=== PATIENT | female | born 1965 | race Caucasian/White ===

== ENCOUNTER 2018-04-05 22:22 | Emergency (ER) | payer BC ==
[2018-04-05] MEDS ORDERED: LORazepam 2 MG/ML SDV IVPUSH ONE (22:31)
[2018-04-05] MEDS ORDERED: Ondansetron 4 MG/2 ML SDV IVPUSH ONE (22:31)
[2018-04-05] MEDS ORDERED: Sodium Chloride 0.9% 1,000 ML IV ONE (22:31)
--- NOTE | 2018-04-05 22:34 | EDM.PDOC ---
ED HPI GENERAL MEDICAL PROBLEM - General Chief Complaint: Gastrointestinal Problem Stated Complaint: VERY WEAK AND BLEEDING FROM HER BOTTOM Time Seen by Provider: 04/05/18 22:29 - History of Present Illness INITIAL COMMENTS - FREE TEXT/NARRATIVE: HISTORY AND PHYSICAL: History of present illness: Patient's 52-year-old female presents with concern of 24-48 hour history of abdominal cramping and bloody diarrhea nausea without vomiting tactile fever chills denies chest pain shortness of breath denies prior episodes denies recent travel out of country denies ill contacts. Review of systems: As per history of present illness and below otherwise all systems reviewed and negative. Past medical history: As per history of present illness and as reviewed below otherwise noncontributory. Surgical history: As per history of present illness and as reviewed below otherwise noncontributory. Social history: No reported history of drug or alcohol abuse. Family history: As per history of present illness and as reviewed below otherwise noncontributory. Physical exam: HEENT: Atraumatic, normocephalic, pupils reactive, negative for conjunctival pallor or scleral icterus, mucous membranes moist, throat clear, neck supple, nontender, trachea midline. Lungs: Clear to auscultation, breath sounds equal bilaterally, chest nontender. Heart: S1S2, regular, negative for clicks, rubs, or JVD. Abdomen: Soft, nondistended, no localized tenderness. Negative for masses or hepatosplenomegaly. Negative for costovertebral tenderness. Pelvis: Stable nontender. Genitourinary: Deferred. Rectal: Deferred. Extremities: Atraumatic, negative for cords or calf pain. Neurovascular unremarkable. Neuro: Awake, alert, oriented. Cranial nerves II through XII unremarkable. Cerebellum unremarkable. Motor and sensory unremarkable throughout. Exam nonfocal. Diagnostics: CBC CMP UA hCG stool for C&S O&P and C. difficile CT abdomen and pelvis chest x- ray Therapeutics: Saline 1 L bolus Zofran 4 mg IV Ativan 1 mg IV Impression: #1 abdominal pain #2 enteritis Definitive disposition and diagnosis as appropriate pending reevaluation and review of above. Abdomen Pain Score (Numeric/FACES): 8 - Related Data Allergies Allergy/AdvReac Type Severity Reaction Status Date / Time amoxicillin [Amoxicillin] Allergy Hives Verified 04/05/18 22:26 Dairy Products Allergy Hives Verified 04/05/18 22:26 kiwi Allergy Anaphylactic Verified 04/05/18 22:26 Shock latex Allergy Hives Verified 04/05/18 22:26 balloons Allergy Hives Uncoded 04/05/18 22:26 Home Meds: Home Meds . [No Known Home Meds] 04/05/18 [History] Past Medical History - Past Health History Medical/Surgical History: Denies Medical/Surgical History ED ROS GENERAL - Review of Systems Review Of Systems: ROS reveals no pertinent complaints other than HPI. ED EXAM, GENERAL - Physical Exam Exam: See Below (Dictation) Course - Vital Signs Last Recorded V/S: Last Vital Signs Temp 36.1 C 04/05/18 22:26 Pulse 83 04/05/18 22:26 Resp 18 04/05/18 22:26 BP Pulse Ox 98 04/05/18 22:26 - Orders/Labs/Meds Orders: Active Orders 24 hr Category Date Time Status Abdomen Pelvis wo Cont [CT] Stat Exams 04/05/18 22:30 Ordered Chest 1V Frontal [CR] Stat Exams 04/05/18 22:30 Taken CDIFF TOX A+B [OP] Stat Lab 04/05/18 22:32 Ordered CULTURE BLOOD [BC] Stat Lab 04/05/18 22:30 Received CULTURE BLOOD [BC] Stat Lab 04/05/18 22:50 Received CULTURE STOOL + CAMPY+SHIGATOX [RM] Stat Lab 04/05/18 22:32 Ordered HCG QUALITATIVE,URINE [URCHEM] Stat Lab 04/05/18 22:55 Ordered UA W/MICROSCOPIC [URIN] Stat Lab 04/05/18 22:55 Ordered Blood Culture x2 Reflex Set [OM.PC] Stat Oth 04/05/18 22:34 Ordered Labs: Laboratory Tests 04/05/18 04/05/18 04/05/18 Range/Units 22:30 22:30 22:55 WBC 9.59 (4.0-11.0) K/uL RBC 4.26 L (4.30-5.90) M/uL Hgb 14.6 (12.0-16.0) g/dL Hct 41.7 (36.0-46.0) % MCV 97.9 (80.0-98.0) fL MCH 34.3 H (27.0-32.0) pg MCHC 35.0 (31.0-37.0) g/dL RDW Std Deviation 47.9 (28.0-62.0) fl RDW Coeff of Janneth 13 (11.0-15.0) % Plt Count 234 (150-400) K/uL MPV 10.90 (7.40-12.00) fL Neut % (Auto) 48.0 (48.0-80.0) % Lymph % (Auto) 44.9 H (16.0-40.0) % [place] % (Auto) 5.8 (0.0-15.0) % Eos % (Auto) 0.9 (0.0-7.0) % Baso % (Auto) 0.4 (0.0-1.5) % Neut # (Auto) 4.6 (1.4-5.7) K/uL Lymph # (Auto) 4.3 H (0.6-2.4) K/uL [place] # (Auto) 0.6 (0.0-0.8) K/uL Eos # (Auto) 0.1 (0.0-0.7) K/uL Baso # (Auto) 0.0 (0.0-0.1) K/uL Nucleated RBC % 0.0 /100WBC Nucleated RBCs # 0 K/uL Lactate 1.3 (0.20-2.00) mmol/L Sodium (136-145) mmol/L Potassium (3.5-5.1) mmol/L Chloride (98-107) mmol/L Carbon Dioxide (21.0-32.0) mmol/L BUN (7.0-18.0) mg/dL Creatinine (0.6-1.0) mg/dL Est Cr Clr Drug Dosing mL/min Estimated GFR (MDRD) ml/min Glucose (74-106) mg/dL Calcium (8.5-10.1) mg/dL Total Bilirubin (0.2-1.0) mg/dL AST (15-37) IU/L ALT (14-63) IU/L Alkaline Phosphatase (46-116) U/L Total Protein (6.4-8.2) g/dL Albumin (3.4-5.0) g/dL Globulin (2.0-3.5) g/dL Albumin/Globulin Ratio (1.3-2.8) Urine Color YELLOW Urine Appearance CLEAR Urine pH 8.0 (5.0-8.0) Ur Specific [place] 1.010 (1.001-1.035) Urine Protein NEGATIVE (NEGATIVE) mg/dL Urine Glucose (UA) NEGATIVE (NEGATIVE) mg/dL Urine Ketones NEGATIVE (NEGATIVE) mg/dL Urine Occult Blood TRACE-INTACT (NEGATIVE) Urine Nitrite NEGATIVE (NEGATIVE) Urine Bilirubin NEGATIVE (NEGATIVE) Urine Urobilinogen 0.2 (<2.0) EU/dL Ur Leukocyte Esterase SMALL (NEGATIVE) Urine RBC 1-3 (0-2/HPF) Urine WBC 2-4 (0-5/HPF) Ur Epithelial Cells OCCASIONAL (NONE-FEW) Urine Bacteria FEW (NEGATIVE) Urine Mucus FEW (NONE-MOD) Urine HCG, Qual (NEGATIVE) 04/05/18 04/05/18 Range/Units 22:55 23:13 WBC (4.0-11.0) K/uL RBC (4.30-5.90) M/uL Hgb (12.0-16.0) g/dL Hct (36.0-46.0) % MCV (80.0-98.0) fL MCH (27.0-32.0) pg MCHC (31.0-37.0) g/dL RDW Std Deviation (28.0-62.0) fl RDW Coeff of Janneth (11.0-15.0) % Plt Count (150-400) K/uL MPV (7.40-12.00) fL Neut % (Auto) (48.0-80.0) % Lymph % (Auto) (16.0-40.0) % [place] % (Auto) (0.0-15.0) % Eos % (Auto) (0.0-7.0) % Baso % (Auto) (0.0-1.5) % Neut # (Auto) (1.4-5.7) K/uL Lymph # (Auto) (0.6-2.4) K/uL [place] # (Auto) (0.0-0.8) K/uL Eos # (Auto) (0.0-0.7) K/uL Baso # (Auto) (0.0-0.1) K/uL Nucleated RBC % /100WBC Nucleated RBCs # K/uL Lactate (0.20-2.00) mmol/L Sodium 142 (136-145) mmol/L Potassium 3.8 (3.5-5.1) mmol/L Chloride 109 H (98-107) mmol/L Carbon Dioxide 26.2 (21.0-32.0) mmol/L BUN 6 L (7.0-18.0) mg/dL Creatinine 0.7 (0.6-1.0) mg/dL Est Cr Clr Drug Dosing 89.87 mL/min Estimated GFR (MDRD) > 60.0 ml/min Glucose 87 (74-106) mg/dL Calcium 8.3 L (8.5-10.1) mg/dL Total Bilirubin 0.5 (0.2-1.0) mg/dL AST 16 (15-37) IU/L ALT 19 (14-63) IU/L Alkaline Phosphatase 53 (46-116) U/L Total Protein 6.2 L (6.4-8.2) g/dL Albumin 3.4 (3.4-5.0) g/dL Globulin 2.8 (2.0-3.5) g/dL Albumin/Globulin Ratio 1.2 L (1.3-2.8) Urine Color Urine Appearance Urine pH (5.0-8.0) Ur Specific [place] (1.001-1.035) Urine Protein (NEGATIVE) mg/dL Urine Glucose (UA) (NEGATIVE) mg/dL Urine Ketones (NEGATIVE) mg/dL Urine Occult Blood (NEGATIVE) Urine Nitrite (NEGATIVE) Urine Bilirubin (NEGATIVE) Urine Urobilinogen (<2.0) EU/dL Ur Leukocyte Esterase (NEGATIVE) Urine RBC (0-2/HPF) Urine WBC (0-5/HPF) Ur Epithelial Cells (NONE-FEW) Urine Bacteria (NEGATIVE) Urine Mucus (NONE-MOD) Urine HCG, Qual NEGATIVE (NEGATIVE) Meds: Medications Discontinued Medications Generic Name Dose Route Start Last Admin Trade Name Freq PRN Reason Stop Dose Admin Sodium Chloride 1,000 mls @ 999 mls/hr 04/05/18 22:31 04/05/18 22:40 Normal Saline IV 04/05/18 23:31 999 mls/hr .Bolus ONE Administration Lorazepam 1 mg 04/05/18 22:31 04/05/18 22:40 Ativan IVPUSH 04/05/18 22:32 1 mg ONETIME ONE Administration Ondansetron HCl 4 mg 04/05/18 22:31 04/05/18 22:41 Zofran IVPUSH 04/05/18 22:32 4 mg ONETIME ONE Administration Departure - Departure Time of Disposition: 00:05 Disposition: Home, Self-Care 01 Condition: Good Clinical Impression: Colitis - Discharge Information *PRESCRIPTION DRUG MONITORING PROGRAM REVIEWED*: Not Applicable *COPY OF PRESCRIPTION DRUG MONITORING REPORT IN PATIENT NORBERT: Not Applicable Referrals: PCP,None [Primary Care Provider] - Forms: ED Department Discharge Additional Instructions: The following information is given to patients seen in the emergency department who are being discharged to home. This information is to outline your options for follow-up care. We provide all patients seen in our emergency department with a follow-up referral. The need for follow-up, as well as the timing and circumstances, are variable depending upon the specifics of your emergency department visit. If you don't have a primary care physician on staff, we will provide you with a referral. We always advise you to contact your personal physician following an emergency department visit to inform them of the circumstance of the visit and for follow-up with them and/or the need for any referrals to a consulting specialist. The emergency department will also refer you to a specialist when appropriate. This referral assures that you have the opportunity for followup care with a specialist. All of these measure are taken in an effort to provide you with optimal care, which includes your followup. Under all circumstances we always encourage you to contact your private physician who remains a resource for coordinating your care. When calling for followup care, please make the office aware that this follow-up is from your recent emergency room visit. If for any reason you are refused follow-up, please contact the [facility] emergency department at and asked to speak to the emergency department charge nurse. [facility] [address] [place] [address], [address] [place] [address] Flagyl Cipro as prescribed push fluids clear liquids as directed follow-up primary medical doctor and/or general surgery as discussed call to schedule routine appointments return as needed as discussed - My Orders Last 24 Hours: My Active Orders 04/05/18 22:30 Abdomen Pelvis wo Cont [CT] Stat Chest 1V Frontal [CR] Stat CULTURE BLOOD [BC] Stat 04/05/18 22:32 CDIFF TOX A+B [OP] Stat CULTURE STOOL + CAMPY+SHIGATOX [RM] Stat 04/05/18 22:34 Blood Culture x2 Reflex Set [OM.PC] Stat 04/05/18 22:50 CULTURE BLOOD [BC] Stat 04/05/18 22:55 HCG QUALITATIVE,URINE [URCHEM] Stat UA W/MICROSCOPIC [URIN] Stat - Assessment/Plan Last 24 Hours: My Active Orders 04/05/18 22:30 Abdomen Pelvis wo Cont [CT] Stat Chest 1V Frontal [CR] Stat CULTURE BLOOD [BC] Stat 04/05/18 22:32 CDIFF TOX A+B [OP] Stat CULTURE STOOL + CAMPY+SHIGATOX [RM] Stat 04/05/18 22:34 Blood Culture x2 Reflex Set [OM.PC] Stat 04/05/18 22:50 CULTURE BLOOD [BC] Stat 04/05/18 22:55 HCG QUALITATIVE,URINE [URCHEM] Stat UA W/MICROSCOPIC [URIN] Stat
[2018-04-05 23:40] LABS: CHLORIDE,CL 109 mmol/L (98-107); SODIUM,NA 142 mmol/L (136-145)
--- NOTE | 2018-04-06 10:20 | CT ---
EXAM DATE: 04/05/18 PATIENT'S AGE: 52 Patient: DIPAK FONSECA Facility: [place], [place] Site . Site : 1965 Study: CT Abdomen/Pelvis w/o cont. [id number]/20/2018 11:40:23 PM Ordering Physician: Doctor Pickering Final Report: INDICATION: Nausea and diarrhea. Blood in stool TECHNIQUE: CT abdomen and pelvis without contrast. COMPARISON: None available FINDINGS: Lower chest: Unremarkable. Liver: Unremarkable. Spleen: Unremarkable. Pancreas: Unremarkable. Gallbladder and bile ducts: Cholecystectomy. Adrenal glands: Unremarkable. Kidneys: No kidney or ureteral stones and no hydronephrosis. GI tract: No mechanical bowel obstruction. A normal appendix. Mild thickening of the distal descending colon and proximal sigmoid colon wall with mild adjacent stranding, suggestive of segmental colitis. Vascular structures: Minor atherosclerotic changes. Lymph nodes: Unremarkable. Miscellaneous: No free air or significant free fluid. Pelvic Organs: A contracted bladder. No gross uterine abnormality seen. Bones: Degenerative changes at the lumbosacral junction. IMPRESSION: Findings consistent with segmental colitis involving the distal descending and proximal sigmoid colon. Recommend colonoscopic evaluation following treatment to exclude an underlying lesion. No obstructive uropathy or discrete urolithiasis. Dictated by Armani Forbes MD @ 04/05/2018 11:57:53 PM Please note that all CT scans at this facility use dose modulation, iterative reconstruction, and/or weight-based dosing when appropriate to reduce radiation dose to as low as reasonably achievable. Dictated by: Armani Forbes MD @ 04/05/2018 23:58:00 (Electronic Signature) Report Signed by Proxy. [facility] C[facility]
--- NOTE | 2018-04-06 10:21 | CR ---
EXAM DATE: 04/05/18 PATIENT'S AGE: 52 Patient: DIPAK FONSECA Facility: [place], [place] Site . Site : 1965 Study: XRay Chest [id number]/2018 11:42:46 PM Ordering Physician: Doctor Pickering Final Report: INDICATION: Dizzy, shaky. Nausea, diarrhea for 2 days. Blood in stool today. TECHNIQUE: Chest radiograph 1 view COMPARISON: None FINDINGS: Mediastinum: The mediastinum is normal in appearance. The heart silhouette is normal in size and morphology. Lung: Both lungs are unremarkable in appearance. No sign of pleural effusion seen. No pneumothorax is identified. Musculoskeletal: Unremarkable for age. IMPRESSION: 1. No acute cardiopulmonary disease is seen. Dictated by: Phillip Brantley MD @ 04/05/2018 23:50:35 (Electronic Signature) Report Signed by Proxy. KETURAH
== END 2018-04-06 00:17 | disposition home or self-care (01) ==
LOC: MW.ED 22:22
DX: K52.9 Noninfective gastroenteritis and colitis, unspecified (principal); Z88.1 Allergy status to other antibiotic agents; Z91.040 Latex allergy status; Z91.011 Allergy to milk products; Z88.8 Allergy status to other drugs, medicaments and biological substances
CPT/HCPCS: 36415; 71045; 74176; 80053; 81001; 81025; 83605; 85025; 87040; 96361; 96374; 96375; 99284; J2060; J2405; J7040

== ENCOUNTER 2019-04-24 22:44 | Observation (INO) | payer BC, OTHER ==
[2019-04-24] MEDS ORDERED: Sodium Chloride 0.9% 1,000 ML IV ONE (22:55)
--- NOTE | 2019-04-24 23:06 | EDM.PDOC ---
ED HPI GENERAL MEDICAL PROBLEM - General Chief Complaint: Gastrointestinal Problem Stated Complaint: PT SPOKE TO NURSE Time Seen by Provider: 04/24/19 23:03 - History of Present Illness INITIAL COMMENTS - FREE TEXT/NARRATIVE: HISTORY AND PHYSICAL: History of present illness: Patient is a 53-year-old white female with history of diverticulitis who presents with concern of abdominal pain and bloody diarrhea 1 day she denies fever chills nausea vomiting or other complaints with her prior episode she did not follow through on colonoscopy but states she has been well until today. Review of systems: As per history of present illness and below otherwise all systems reviewed and negative. Past medical history: As per history of present illness and as reviewed below otherwise noncontributory. Surgical history: As per history of present illness and as reviewed below otherwise noncontributory. Social history: No reported history of drug or alcohol abuse. Family history: As per history of present illness and as reviewed below otherwise noncontributory. Physical exam: HEENT: Atraumatic, normocephalic, pupils reactive, negative for conjunctival pallor or scleral icterus, mucous membranes moist, throat clear, neck supple, nontender, trachea midline. Lungs: Clear to auscultation, breath sounds equal bilaterally, chest nontender. Heart: S1S2, regular, negative for clicks, rubs, or JVD. Abdomen: Soft, nondistended, no localized tenderness. Negative for masses or hepatosplenomegaly. Negative for costovertebral tenderness. Pelvis: Stable nontender. Genitourinary: Deferred. Rectal: Deferred. Extremities: Atraumatic, negative for cords or calf pain. Neurovascular unremarkable. Neuro: Awake, alert, oriented. Cranial nerves II through XII unremarkable. Cerebellum unremarkable. Motor and sensory unremarkable throughout. Exam nonfocal. Diagnostics: CBC CMP PT/INR UA CT abdomen and pelvis stool for C&S O&P and C. difficile Therapeutics: Saline 1 L bolus Toradol 30 mg IV Impression: #1 abdominal pain #2 history diverticulitis #3 history of bloody diarrhea Definitive disposition and diagnosis as appropriate pending reevaluation and review of above. abdomen Pain Score (Numeric/FACES): 3 - Related Data Allergies Allergy/AdvReac Type Severity Reaction Status Date / Time amoxicillin [Amoxicillin] Allergy Hives Verified 04/24/19 22:57 cefaclor [From Ceclor] Allergy Hives Verified 04/24/19 22:57 cephalexin Allergy Hives Verified 04/24/19 22:57 Dairy Products Allergy Hives Verified 04/24/19 22:57 kiwi Allergy Anaphylactic Verified 04/24/19 22:57 Shock latex Allergy Hives Verified 04/24/19 22:57 Penicillins Allergy Hives Verified 04/24/19 22:57 balloons Allergy Hives Uncoded 04/24/19 22:57 Home Meds: Home Meds . [No Known Home Meds] 04/24/19 [History] Past Medical History - Past Health History Medical/Surgical History: Denies Medical/Surgical History HEENT History: Reports: None Cardiovascular History: Reports: None Respiratory History: Reports: None Gastrointestinal History: Reports: None Genitourinary History: Reports: None [employer] History: Reports: Musculoskeletal History: Reports: None Neurological History: Reports: None Psychiatric History: Reports: None Endocrine/Metabolic History: Reports: None Hematologic History: Reports: None Immunologic History: Reports: None Oncologic (Cancer) History: Reports: None Dermatologic History: Reports: None - Infectious Disease History Infectious Disease History: Reports: None - Past Surgical History Head Surgeries/Procedures: Reports: None HEENT Surgical History: Reports: None Cardiovascular Surgical History: Reports: None Respiratory Surgical History: Reports: None GI Surgical History: Reports: Cholecystectomy Female Surgical History: Reports: Section Endocrine Surgical History: Reports: None Neurological Surgical History: Reports: None Musculoskeletal Surgical History: Reports: None Oncologic Surgical History: Reports: None Dermatological Surgical History: Reports: None Social & Family History - Family History Family Medical History: Noncontributory - Tobacco Use Smoking Status *Q: Never Smoker - Caffeine Use Caffeine Use: Reports: Coffee - Recreational Drug Use Recreational Drug Use: No ED ROS GENERAL - Review of Systems Review Of Systems: ROS reveals no pertinent complaints other than HPI. ED EXAM, GENERAL - Physical Exam Exam: See Below (See dictation) Course - Vital Signs Last Recorded V/S: Last Vital Signs Temp 35.8 C 04/24/19 22:44 Pulse 66 04/25/19 00:02 Resp 16 04/25/19 00:02 BP 111/75 04/24/19 22:44 Pulse Ox 100 04/25/19 00:02 - Orders/Labs/Meds Orders: Active Orders 24 hr Category Date Time Status Peripheral IV Care [RC] . DIRECTED Care 04/24/19 22:55 Active CULTURE URINE [RM] Stat Lab 04/24/19 23:30 Received Peripheral IV Insertion Adult [OM.PC] Stat Oth 04/24/19 22:55 Ordered Labs: Laboratory Tests 04/24/19 04/24/19 04/24/19 Range/Units 23:00 23:00 23:00 WBC 6.82 (4.0-11.0) K/uL RBC 4.34 (4.30-5.90) M/uL Hgb 14.5 (12.0-16.0) g/dL Hct 42.6 (36.0-46.0) % MCV 98.2 H (80.0-98.0) fL MCH 33.4 H (27.0-32.0) pg MCHC 34.0 (31.0-37.0) g/dL RDW Std Deviation 47.9 (28.0-62.0) fl RDW Coeff of Janneth 13 (11.0-15.0) % Plt Count 183 (150-400) K/uL MPV 10.50 (7.40-12.00) fL Neut % (Auto) 54.1 (48.0-80.0) % Lymph % (Auto) 37.8 (16.0-40.0) % [place] % (Auto) 6.5 (0.0-15.0) % Eos % (Auto) 1.2 (0.0-7.0) % Baso % (Auto) 0.4 (0.0-1.5) % Neut # (Auto) 3.7 (1.4-5.7) K/uL Lymph # (Auto) 2.6 H (0.6-2.4) K/uL [place] # (Auto) 0.4 (0.0-0.8) K/uL Eos # (Auto) 0.1 (0.0-0.7) K/uL Baso # (Auto) 0.0 (0.0-0.1) K/uL Nucleated RBC % 0.0 /100WBC Nucleated RBCs # 0 K/uL INR 1.08 Sodium 144 (136-145) mmol/L Potassium 3.5 (3.5-5.1) mmol/L Chloride 105 (98-107) mmol/L Carbon Dioxide 26.9 (21.0-32.0) mmol/L BUN 7 (7.0-18.0) mg/dL Creatinine 0.7 (0.6-1.0) mg/dL Est Cr Clr Drug Dosing 92.02 mL/min Estimated GFR (MDRD) > 60.0 ml/min Glucose 105 (74-106) mg/dL Calcium 9.2 (8.5-10.1) mg/dL Urine Color Urine Appearance Urine pH (5.0-8.0) Ur Specific [place] (1.001-1.035) Urine Protein (NEGATIVE) mg/dL Urine Glucose (UA) (NEGATIVE) mg/dL Urine Ketones (NEGATIVE) mg/dL Urine Occult Blood (NEGATIVE) Urine Nitrite (NEGATIVE) Urine Bilirubin (NEGATIVE) Urine Urobilinogen (<2.0) EU/dL Ur Leukocyte Esterase (NEGATIVE) Urine RBC (0-2/HPF) Urine WBC (0-5/HPF) Ur Epithelial Cells (NONE-FEW) Urine Bacteria (NEGATIVE) 04/24/19 Range/Units 23:30 WBC (4.0-11.0) K/uL RBC (4.30-5.90) M/uL Hgb (12.0-16.0) g/dL Hct (36.0-46.0) % MCV (80.0-98.0) fL MCH (27.0-32.0) pg MCHC (31.0-37.0) g/dL RDW Std Deviation (28.0-62.0) fl RDW Coeff of Janneth (11.0-15.0) % Plt Count (150-400) K/uL MPV (7.40-12.00) fL Neut % (Auto) (48.0-80.0) % Lymph % (Auto) (16.0-40.0) % [place] % (Auto) (0.0-15.0) % Eos % (Auto) (0.0-7.0) % Baso % (Auto) (0.0-1.5) % Neut # (Auto) (1.4-5.7) K/uL Lymph # (Auto) (0.6-2.4) K/uL [place] # (Auto) (0.0-0.8) K/uL Eos # (Auto) (0.0-0.7) K/uL Baso # (Auto) (0.0-0.1) K/uL Nucleated RBC % /100WBC Nucleated RBCs # K/uL INR Sodium (136-145) mmol/L Potassium (3.5-5.1) mmol/L Chloride (98-107) mmol/L Carbon Dioxide (21.0-32.0) mmol/L BUN (7.0-18.0) mg/dL Creatinine (0.6-1.0) mg/dL Est Cr Clr Drug Dosing mL/min Estimated GFR (MDRD) ml/min Glucose (74-106) mg/dL Calcium (8.5-10.1) mg/dL Urine Color YELLOW Urine Appearance SLT CLOUDY Urine pH 6.5 (5.0-8.0) Ur Specific [place] <= 1.005 (1.001-1.035) Urine Protein NEGATIVE (NEGATIVE) mg/dL Urine Glucose (UA) NEGATIVE (NEGATIVE) mg/dL Urine Ketones NEGATIVE (NEGATIVE) mg/dL Urine Occult Blood MODERATE H (NEGATIVE) Urine Nitrite NEGATIVE (NEGATIVE) Urine Bilirubin NEGATIVE (NEGATIVE) Urine Urobilinogen 0.2 (<2.0) EU/dL Ur Leukocyte Esterase LARGE H (NEGATIVE) Urine RBC 0-2 (0-2/HPF) Urine WBC 15-20 (0-5/HPF) Ur Epithelial Cells MODERATE (NONE-FEW) Urine Bacteria FEW (NEGATIVE) Meds: Medications Discontinued Medications Generic Name Dose Route Start Last Admin Trade Name Freq PRN Reason Stop Dose Admin Sodium Chloride 1,000 mls @ 999 mls/hr 04/24/19 22:55 04/24/19 23:03 Normal Saline IV 04/24/19 23:55 999 mls/hr .Bolus ONE Administration Departure - Departure Time of Disposition: 00:36 Disposition: Refer to Observation Condition: Good Clinical Impression: Colitis - Discharge Information Referrals: PCP,None [Primary Care Provider] - Forms: ED Department Discharge - My Orders Last 24 Hours: My Active Orders 04/24/19 22:55 Peripheral IV Care [RC] . DIRECTED Peripheral IV Insertion Adult [OM.PC] Stat 04/24/19 23:30 CULTURE URINE [RM] Stat - Assessment/Plan Last 24 Hours: My Active Orders 04/24/19 22:55 Peripheral IV Care [RC] . DIRECTED Peripheral IV Insertion Adult [OM.PC] Stat 04/24/19 23:30 CULTURE URINE [RM] Stat
[2019-04-24 23:26] LABS: BLOOD UREA NITROGEN,BUN 7 mg/dL (7.0-18.0); CARBON DIOXIDE,CO2 26.9 mmol/L (21.0-32.0); CHLORIDE,CL 105 mmol/L (98-107); GLUCOSE RANDOM 105 mg/dL (74-106); POTASSIUM,K 3.5 mmol/L (3.5-5.1); SODIUM,NA 144 mmol/L (136-145)
--- NOTE | 2019-04-25 00:13 | CT ---
INDICATION: Bloody stools TECHNIQUE: CT abdomen and pelvis without contrast. COMPARISON: Abdomen and pelvis CT 04/05/2018 FINDINGS: Lower chest: Unremarkable. Liver: Normal in size and attenuation. No masses. Gallbladder and bile ducts: Status post cholecystectomy. Pancreas: Unremarkable. No mass or inflammation. Spleen: Normal in size. No masses. Adrenal glands: Normal in size. No nodules. Kidneys: Normal in size. No masses, stones, or hydronephrosis. GI tract: The stomach is unremarkable. There are no dilated loops of large or small intestine fruit evaluation of the bowel is somewhat limited due to the absence of intravenous and oral contrast although there is some colonic wall thickening of the descending colon with trace adjacent inflammation (201, 65). Vasculature: Unremarkable. Pelvis: Unremarkable. No pelvic masses. Bones: Mild degenerative disc disease L5-S1. IMPRESSION: 1. No evidence of nephrolithiasis or hydronephrosis. 2. Mild wall thickening and slight fat stranding surrounding the descending colon consistent with a long segment colitis. Differential diagnosis includes infectious colitis, inflammatory bowel disease and ischemic colitis. Please note that all CT scans at this facility use dose modulation, iterative reconstruction, and/or weight-based dosing when appropriate to reduce radiation dose to as low as reasonably achievable. Dictated by Cuong Yang MD @ Apr 24 2019 11:55PM Signed by Dr. Cuong Yang @ Apr 25 2019 12:10AM
[2019-04-25] MEDS ORDERED: metroNIDAZOLE/Normal Saline 500 MG in Premix Bag 1 BAG IV ONE (00:36)
[2019-04-25] MEDS ORDERED: Ciprofloxacin in D5W 400 MG in Premix Bag 1 BAG IV SCH ×4 (00:45→14:00)
[2019-04-25] MEDS ORDERED: Acetaminophen 325 MG Tab PO PRN (02:21)
[2019-04-25] MEDS ORDERED: oxyCODONE 5 MG Tab PO PRN (02:22)
[2019-04-25] MEDS ORDERED: Sodium Chloride 0.9% 1,000 ML IV SCH (02:30)
[2019-04-25 06:48] LABS: BLOOD UREA NITROGEN,BUN 4 mg/dL (7.0-18.0); CARBON DIOXIDE,CO2 25.2 mmol/L (21.0-32.0); CHLORIDE,CL 110 mmol/L (98-107); GLUCOSE RANDOM 104 mg/dL (74-106); POTASSIUM,K 3.5 mmol/L (3.5-5.1); SODIUM,NA 146 mmol/L (136-145)
--- NOTE | 2019-04-25 07:31 | PCM.HP.2 ---
<Leti Neri - Last Filed: 04/25/19 15:47> H&P History of Present Illness - General Date of Service: 04/25/19 Admit Problem/Dx: Admission Diagnosis/Problem Admission Diagnosis/Problem Colitis - History of Present Illness Initial Comments - Free Text/Narative: The patient is a 53-year-old female who presented to the ER last night with lower abdominal pain and bloody diarrhea 1 day. She reports she's had a history of diverticulitis within the last year and this feels the same. Reports she was supposed to follow-up with Gen. surgery for colonoscopy, but she did not. She denies any fever, chills, chest pain, shortness of breath, nausea, or vomiting. Her lower abdominal pain is more left-sided and crampy. She also noticed increased urinary frequency but no burning with urination. She reports she is otherwise healthy and does not take any medications. In the ER, lab work did not show a white count or anemia. A BMP showed no significant abnormalities. A UA did show signs of infection. A CT of the abdomen and pelvis showed mild wall thickening and slight stranding of the descending colon. Patient was started on Cipro, Flagyl and IV fluids. PCP- Aguilar abdomen Pain Score (Numeric/FACES): 4 - Related Data Allergies/Adverse Reactions: Allergies Allergy/AdvReac Type Severity Reaction Status Date / Time amoxicillin [Amoxicillin] Allergy Hives Verified 04/25/19 01:20 cefaclor [From Ceclor] Allergy Hives Verified 04/25/19 01:20 cephalexin Allergy Hives Verified 04/25/19 01:20 kiwi Allergy Anaphylactic Verified 04/25/19 01:20 Shock latex Allergy Hives Verified 04/25/19 01:20 Penicillins Allergy Hives Verified 04/25/19 01:20 balloons Allergy Hives Uncoded 04/24/19 22:57 Home Medications: Home Meds Ciprofloxacin HCl [Cipro] 500 mg PO BID 13 Days #26 tablet 04/25/19 [Rx] metroNIDAZOLE [Flagyl] 500 mg PO Q8H 13 Days #39 tab 04/25/19 [Rx] Past Medical History - Past Health History Medical/Surgical History: Denies Medical/Surgical History HEENT History: Reports: None Cardiovascular History: Reports: None Respiratory History: Reports: None Gastrointestinal History: Reports: None Genitourinary History: Reports: None [employer] History: Reports: Musculoskeletal History: Reports: None Neurological History: Reports: None Psychiatric History: Reports: None Endocrine/Metabolic History: Reports: None Hematologic History: Reports: None Immunologic History: Reports: None Oncologic (Cancer) History: Reports: None Dermatologic History: Reports: None - Infectious Disease History Infectious Disease History: Reports: None - Past Surgical History Head Surgeries/Procedures: Reports: None HEENT Surgical History: Reports: None Cardiovascular Surgical History: Reports: None Respiratory Surgical History: Reports: None GI Surgical History: Reports: Cholecystectomy Female Surgical History: Reports: Section Endocrine Surgical History: Reports: None Neurological Surgical History: Reports: None Musculoskeletal Surgical History: Reports: None Oncologic Surgical History: Reports: None Dermatological Surgical History: Reports: None Social & Family History - Family History Family Medical History: Noncontributory - Tobacco Use Smoking Status *Q: Never Smoker - Caffeine Use Caffeine Use: Reports: Coffee - Recreational Drug Use Recreational Drug Use: No H&P Review of Systems - Review of Systems: Review Of Systems: See Below General: Reports: No Symptoms HEENT: Reports: No Symptoms Pulmonary: Reports: No Symptoms Cardiovascular: Reports: No Symptoms Gastrointestinal: Reports: Abdominal Pain, Bloody Stool, Diarrhea. Denies: Constipation, Nausea, Vomiting Genitourinary: Reports: Frequency. Denies: Dysuria, Burning, Pain, Urgency Musculoskeletal: Reports: No Symptoms Skin: Reports: No Symptoms Psychiatric: Reports: No Symptoms Neurological: Reports: No Symptoms Hematologic/Lymphatic: Reports: No Symptoms Immunologic: Reports: No Symptoms Exam - Exam Exam: See Below - Vital Signs Vital Signs: Last Vital Signs Temp 97.4 F 04/25/19 04:43 Pulse 67 04/25/19 04:43 Resp 16 04/25/19 04:43 BP 117/63 04/25/19 04:43 Pulse Ox 98 04/25/19 04:43 Weight: 61.689 kg - Exam General: Alert, Oriented, Cooperative HEENT: Conjunctiva Clear, EOMI, Mucosa Moist & [place], Posterior Pharynx Clear, Pupils Equal, Pupils Reactive Neck: Supple, Trachea Midline Lungs: Clear to Auscultation, Normal Respiratory Effort Cardiovascular: Regular Rate, Regular Rhythm GI/Abdominal Exam: Normal Bowel Sounds, Soft, Tender (LLQ). No: Guarding, Rigid , Rebound Extremities: No Pedal Edema Skin: Warm, Dry, Intact Neuro Extensive - Mental Status: Alert, Oriented x3 Psychiatric: Alert, Normal Affect, Normal Mood - Patient Data Lab Results Last 24 hrs: Laboratory Results - last 24 hr 04/24/19 04/24/19 04/24/19 Range/Units 23:00 23:00 23:00 WBC 6.82 (4.0-11.0) K/uL RBC 4.34 (4.30-5.90) M/uL Hgb 14.5 (12.0-16.0) g/dL Hct 42.6 (36.0-46.0) % MCV 98.2 H (80.0-98.0) fL MCH 33.4 H (27.0-32.0) pg MCHC 34.0 (31.0-37.0) g/dL RDW Std Deviation 47.9 (28.0-62.0) fl RDW Coeff of Janneth 13 (11.0-15.0) % Plt Count 183 (150-400) K/uL MPV 10.50 (7.40-12.00) fL Neut % (Auto) 54.1 (48.0-80.0) % Lymph % (Auto) 37.8 (16.0-40.0) % [place] % (Auto) 6.5 (0.0-15.0) % Eos % (Auto) 1.2 (0.0-7.0) % Baso % (Auto) 0.4 (0.0-1.5) % Neut # (Auto) 3.7 (1.4-5.7) K/uL Lymph # (Auto) 2.6 H (0.6-2.4) K/uL [place] # (Auto) 0.4 (0.0-0.8) K/uL Eos # (Auto) 0.1 (0.0-0.7) K/uL Baso # (Auto) 0.0 (0.0-0.1) K/uL Nucleated RBC % 0.0 /100WBC Nucleated RBCs # 0 K/uL INR 1.08 Sodium 144 (136-145) mmol/L Potassium 3.5 (3.5-5.1) mmol/L Chloride 105 (98-107) mmol/L Carbon Dioxide 26.9 (21.0-32.0) mmol/L BUN 7 (7.0-18.0) mg/dL Creatinine 0.7 (0.6-1.0) mg/dL Est Cr Clr Drug Dosing 92.02 mL/min Estimated GFR (MDRD) > 60.0 ml/min Glucose 105 (74-106) mg/dL Calcium 9.2 (8.5-10.1) mg/dL Total Bilirubin (0.2-1.0) mg/dL AST (15-37) IU/L ALT (14-63) IU/L Alkaline Phosphatase (46-116) U/L Total Protein (6.4-8.2) g/dL Albumin (3.4-5.0) g/dL Globulin (2.6-4.0) g/dL Albumin/Globulin Ratio (0.9-1.6) Urine Color Urine Appearance Urine pH (5.0-8.0) Ur Specific [place] (1.001-1.035) Urine Protein (NEGATIVE) mg/dL Urine Glucose (UA) (NEGATIVE) mg/dL Urine Ketones (NEGATIVE) mg/dL Urine Occult Blood (NEGATIVE) Urine Nitrite (NEGATIVE) Urine Bilirubin (NEGATIVE) Urine Urobilinogen (<2.0) EU/dL Ur Leukocyte Esterase (NEGATIVE) Urine RBC (0-2/HPF) Urine WBC (0-5/HPF) Ur Epithelial Cells (NONE-FEW) Urine Bacteria (NEGATIVE) 04/24/19 04/25/19 04/25/19 Range/Units 23:30 06:00 06:00 WBC 4.10 (4.0-11.0) K/uL RBC 3.82 L (4.30-5.90) M/uL Hgb 12.5 (12.0-16.0) g/dL Hct 37.4 (36.0-46.0) % MCV 97.9 (80.0-98.0) fL MCH 32.7 H (27.0-32.0) pg MCHC 33.4 (31.0-37.0) g/dL RDW Std Deviation 47.0 (28.0-62.0) fl RDW Coeff of Janneth 13 (11.0-15.0) % Plt Count 145 L (150-400) K/uL MPV 10.20 (7.40-12.00) fL Neut % (Auto) 56.5 (48.0-80.0) % Lymph % (Auto) 34.4 (16.0-40.0) % [place] % (Auto) 7.1 (0.0-15.0) % Eos % (Auto) 1.5 (0.0-7.0) % Baso % (Auto) 0.5 (0.0-1.5) % Neut # (Auto) 2.3 (1.4-5.7) K/uL Lymph # (Auto) 1.4 (0.6-2.4) K/uL [place] # (Auto) 0.3 (0.0-0.8) K/uL Eos # (Auto) 0.1 (0.0-0.7) K/uL Baso # (Auto) 0.0 (0.0-0.1) K/uL Nucleated RBC % 0.0 /100WBC Nucleated RBCs # 0 K/uL INR Sodium 146 H (136-145) mmol/L Potassium 3.5 (3.5-5.1) mmol/L Chloride 110 H (98-107) mmol/L Carbon Dioxide 25.2 (21.0-32.0) mmol/L BUN 4 L (7.0-18.0) mg/dL Creatinine 0.6 (0.6-1.0) mg/dL Est Cr Clr Drug Dosing 106.81 mL/min Estimated GFR (MDRD) > 60.0 ml/min Glucose 104 (74-106) mg/dL Calcium 8.2 L (8.5-10.1) mg/dL Total Bilirubin 0.8 (0.2-1.0) mg/dL AST 15 (15-37) IU/L ALT 18 (14-63) IU/L Alkaline Phosphatase 53 (46-116) U/L Total Protein 5.6 L (6.4-8.2) g/dL Albumin 3.0 L (3.4-5.0) g/dL Globulin 2.6 (2.6-4.0) g/dL Albumin/Globulin Ratio 1.2 (0.9-1.6) Urine Color YELLOW Urine Appearance SLT CLOUDY Urine pH 6.5 (5.0-8.0) Ur Specific [place] <= 1.005 (1.001-1.035) Urine Protein NEGATIVE (NEGATIVE) mg/dL Urine Glucose (UA) NEGATIVE (NEGATIVE) mg/dL Urine Ketones NEGATIVE (NEGATIVE) mg/dL Urine Occult Blood MODERATE H (NEGATIVE) Urine Nitrite NEGATIVE (NEGATIVE) Urine Bilirubin NEGATIVE (NEGATIVE) Urine Urobilinogen 0.2 (<2.0) EU/dL Ur Leukocyte Esterase LARGE H (NEGATIVE) Urine RBC 0-2 (0-2/HPF) Urine WBC 15-20 (0-5/HPF) Ur Epithelial Cells MODERATE (NONE-FEW) Urine Bacteria FEW (NEGATIVE) Result Diagrams: 04/25/19 06:00 04/25/19 06:00 - Problem List (1) UTI (urinary tract infection) SNOMED Code(s): 26413739 ICD Code: N39.0 - URINARY TRACT INFECTION, SITE NOT SPECIFIED Status: Acute Current Visit: Yes (2) Colitis SNOMED Code(s): 88157129 ICD Code: K52.9 - NONINFECTIVE GASTROENTERITIS AND COLITIS, UNSPECIFIED Status: Acute Current Visit: Yes Problem List Initiated/Reviewed/Updated: Yes Orders Last 24hrs: Active Orders 24 hr Category Date Time Status Patient Status [ADT] Stat ADT 04/25/19 00:38 Active Peripheral IV Care [RC] . DIRECTED Care 04/24/19 22:55 Active Clear Liquid Diet [DIET] Diet 04/25/19 Breakfast Active CDIFF TOX A+B [OP] Routine Lab 04/25/19 02:25 Ordered CULTURE STOOL + CAMPY+SHIGATOX [RM] Routine Lab 04/25/19 02:25 Ordered CULTURE URINE [RM] Stat Lab 04/24/19 23:30 Received Acetaminophen [Tylenol] Med 04/25/19 02:21 Active 650 mg PO Q6H PRN Ciprofloxacin in D5W [Cipro in D5W 400 MG/200 ML] 400 Med 04/25/19 00:45 Active mg Premix Bag 1 bag IV STAT Sodium Chloride 0.9% [Normal Saline] 1,000 ml Med 04/25/19 02:30 Active IV ASDIRECTED oxyCODONE Med 04/25/19 02:22 Active 5 mg PO Q4H PRN Isolation [COMM] Stat Oth 04/25/19 02:25 Ordered Peripheral IV Insertion Adult [OM.PC] Stat Oth 04/24/19 22:55 Ordered Medication Orders Acetaminophen (Tylenol) 650 mg PO Q6H PRN PRN Reason: Pain (mild 1-3) Ciprofloxacin/Dextrose 400 mg/ (Premix) 200 mls @ 200 mls/hr IV STAT [facility] Last Admin: 04/25/19 01:58 Dose: 200 mls/hr Sodium Chloride (Normal Saline) 1,000 mls @ 100 mls/hr IV ASDIRECTED [facility] Last Admin: 04/25/19 03:25 Dose: 100 mls/hr Oxycodone HCl (Oxycodone) 5 mg PO Q4H PRN PRN Reason: Pain (moderate 4-6) Assessment/Plan Comment:: 1. Admit for observation 2. Code status- full 3. Vitals per routine 4. I/Os per routine 5. Diet- clear liquid 6. DVT prophylaxis with SCDs 7.Colitis- Continue IV Cipro and Flagyl. Continue IVF. Stool studies pending. PRN tylenol and oxycodone for pain. PRN zofran for nausea/vomiting. 8. UTI- on Cipro, urine culture pending. Patient was admitted overnight and continued on IVF and antibiotics. She was tolerating clear liquid diet and it was advanced as tolerated. She was pain free, no white count, and no fever. Patient was requesting discharge on 04/25/19 as she was expecting the of her grandson. Patient will be discharged on Cipro and Flagyl. At time of discharge, Cdiff and Campylobacter were negative, stool culture and Shiga was pending. Cipro should cover UTI as well, urine culture pending. Advance diet as tolerated, activity as tolerated. Follow up with PCP and general surgery as outpatient. Will need colonoscopy as outpatient. Symptoms to report to physician include fever/chills, chest pain, shortness of breath, abdominal pain, worsening diarrhea, erythema, discharge, or not improving as expected. <Edward Mac - Last Filed: 04/25/19 16:08> H&P History of Present Illness - General Admit Problem/Dx: Admission Diagnosis/Problem Admission Diagnosis/Problem Colitis I have seen and examined the patient independently of medical records manager, Dr. Daron DO. I have reviewed and agree with the plan of care as outlined for this patient by her. I have discussed the case with her. Please see orders. Exam - Vital Signs Vital Signs: Last Vital Signs Temp 36.7 C 04/25/19 12:50 Pulse 62 04/25/19 12:50 Resp 16 04/25/19 12:50 BP 124/54 L 04/25/19 12:50 Pulse Ox 98 04/25/19 12:50 - Patient Data Lab Results Last 24 hrs: Laboratory Results - last 24 hr 04/24/19 04/24/19 04/24/19 Range/Units 23:00 23:00 23:00 WBC 6.82 (4.0-11.0) K/uL RBC 4.34 (4.30-5.90) M/uL Hgb 14.5 (12.0-16.0) g/dL Hct 42.6 (36.0-46.0) % MCV 98.2 H (80.0-98.0) fL MCH 33.4 H (27.0-32.0) pg MCHC 34.0 (31.0-37.0) g/dL RDW Std Deviation 47.9 (28.0-62.0) fl RDW Coeff of Janneth 13 (11.0-15.0) % Plt Count 183 (150-400) K/uL MPV 10.50 (7.40-12.00) fL Neut % (Auto) 54.1 (48.0-80.0) % Lymph % (Auto) 37.8 (16.0-40.0) % [place] % (Auto) 6.5 (0.0-15.0) % Eos % (Auto) 1.2 (0.0-7.0) % Baso % (Auto) 0.4 (0.0-1.5) % Neut # (Auto) 3.7 (1.4-5.7) K/uL Lymph # (Auto) 2.6 H (0.6-2.4) K/uL [place] # (Auto) 0.4 (0.0-0.8) K/uL Eos # (Auto) 0.1 (0.0-0.7) K/uL Baso # (Auto) 0.0 (0.0-0.1) K/uL Nucleated RBC % 0.0 /100WBC Nucleated RBCs # 0 K/uL INR 1.08 Sodium 144 (136-145) mmol/L Potassium 3.5 (3.5-5.1) mmol/L Chloride 105 (98-107) mmol/L Carbon Dioxide 26.9 (21.0-32.0) mmol/L BUN 7 (7.0-18.0) mg/dL Creatinine 0.7 (0.6-1.0) mg/dL Est Cr Clr Drug Dosing 92.02 mL/min Estimated GFR (MDRD) > 60.0 ml/min Glucose 105 (74-106) mg/dL Calcium 9.2 (8.5-10.1) mg/dL Total Bilirubin (0.2-1.0) mg/dL AST (15-37) IU/L ALT (14-63) IU/L Alkaline Phosphatase (46-116) U/L Total Protein (6.4-8.2) g/dL Albumin (3.4-5.0) g/dL Globulin (2.6-4.0) g/dL Albumin/Globulin Ratio (0.9-1.6) Urine Color Urine Appearance Urine pH (5.0-8.0) Ur Specific [place] (1.001-1.035) Urine Protein (NEGATIVE) mg/dL Urine Glucose (UA) (NEGATIVE) mg/dL Urine Ketones (NEGATIVE) mg/dL Urine Occult Blood (NEGATIVE) Urine Nitrite (NEGATIVE) Urine Bilirubin (NEGATIVE) Urine Urobilinogen (<2.0) EU/dL Ur Leukocyte Esterase (NEGATIVE) Urine RBC (0-2/HPF) Urine WBC (0-5/HPF) Ur Epithelial Cells (NONE-FEW) Urine Bacteria (NEGATIVE) 04/24/19 04/25/19 04/25/19 Range/Units 23:30 06:00 06:00 WBC 4.10 (4.0-11.0) K/uL RBC 3.82 L (4.30-5.90) M/uL Hgb 12.5 (12.0-16.0) g/dL Hct 37.4 (36.0-46.0) % MCV 97.9 (80.0-98.0) fL MCH 32.7 H (27.0-32.0) pg MCHC 33.4 (31.0-37.0) g/dL RDW Std Deviation 47.0 (28.0-62.0) fl RDW Coeff of Janneth 13 (11.0-15.0) % Plt Count 145 L (150-400) K/uL MPV 10.20 (7.40-12.00) fL Neut % (Auto) 56.5 (48.0-80.0) % Lymph % (Auto) 34.4 (16.0-40.0) % [place] % (Auto) 7.1 (0.0-15.0) % Eos % (Auto) 1.5 (0.0-7.0) % Baso % (Auto) 0.5 (0.0-1.5) % Neut # (Auto) 2.3 (1.4-5.7) K/uL Lymph # (Auto) 1.4 (0.6-2.4) K/uL [place] # (Auto) 0.3 (0.0-0.8) K/uL Eos # (Auto) 0.1 (0.0-0.7) K/uL Baso # (Auto) 0.0 (0.0-0.1) K/uL Nucleated RBC % 0.0 /100WBC Nucleated RBCs # 0 K/uL INR Sodium 146 H (136-145) mmol/L Potassium 3.5 (3.5-5.1) mmol/L Chloride 110 H (98-107) mmol/L Carbon Dioxide 25.2 (21.0-32.0) mmol/L BUN 4 L (7.0-18.0) mg/dL Creatinine 0.6 (0.6-1.0) mg/dL Est Cr Clr Drug Dosing 106.81 mL/min Estimated GFR (MDRD) > 60.0 ml/min Glucose 104 (74-106) mg/dL Calcium 8.2 L (8.5-10.1) mg/dL Total Bilirubin 0.8 (0.2-1.0) mg/dL AST 15 (15-37) IU/L ALT 18 (14-63) IU/L Alkaline Phosphatase 53 (46-116) U/L Total Protein 5.6 L (6.4-8.2) g/dL Albumin 3.0 L (3.4-5.0) g/dL Globulin 2.6 (2.6-4.0) g/dL Albumin/Globulin Ratio 1.2 (0.9-1.6) Urine Color YELLOW Urine Appearance SLT CLOUDY Urine pH 6.5 (5.0-8.0) Ur Specific [place] <= 1.005 (1.001-1.035) Urine Protein NEGATIVE (NEGATIVE) mg/dL Urine Glucose (UA) NEGATIVE (NEGATIVE) mg/dL Urine Ketones NEGATIVE (NEGATIVE) mg/dL Urine Occult Blood MODERATE H (NEGATIVE) Urine Nitrite NEGATIVE (NEGATIVE) Urine Bilirubin NEGATIVE (NEGATIVE) Urine Urobilinogen 0.2 (<2.0) EU/dL Ur Leukocyte Esterase LARGE H (NEGATIVE) Urine RBC 0-2 (0-2/HPF) Urine WBC 15-20 (0-5/HPF) Ur Epithelial Cells MODERATE (NONE-FEW) Urine Bacteria FEW (NEGATIVE) Result Diagrams: 04/25/19 06:00 04/25/19 06:00 Abel Results Last 24 hrs: Microbiology 04/25/19 09:23 Clostridium difficile Toxin A & B - Final Stool / Feces Negative for C.Diff Toxin/AG REFERENCE RANGE: NEGATIVE 04/25/19 09:23 Campylobacter Antigen Assay - Final Stool / Feces NEGATIVE CAMPYLOBACTER AG REFERENCE RANGE: NEGATIVE Orders Last 24hrs: Active Orders 24 hr Category Date Time Status Patient Status [ADT] Stat ADT 04/25/19 00:38 Active Antiembolic Devices [RC] PER UNIT ROUTINE Care 04/25/19 07:35 Active Intake and Output [RC] ASDIRECTED Care 04/25/19 07:34 Active Ready for Discharge [RC] PER UNIT ROUTINE Care 04/25/19 15:47 Active Vital Signs [RC] PER UNIT ROUTINE Care 04/25/19 07:34 Active Soft Diet [DIET] Diet 04/25/19 Lunch Active CULTURE STOOL + CAMPY+SHIGATOX [RM] Routine Lab 04/25/19 09:23 Results CULTURE URINE [RM] Stat Lab 04/24/19 23:30 Received Acetaminophen [Tylenol] Med 04/25/19 02:21 Active 650 mg PO Q6H PRN Ciprofloxacin in D5W [Cipro in D5W 400 MG/200 ML] 400 Med 04/25/19 14:00 Active mg Premix Bag 1 bag IV Q12H Ondansetron [Zofran] Med 04/25/19 07:34 Active 4 mg IVPUSH Q4H PRN Sodium Chloride 0.9% [Normal Saline] 1,000 ml Med 04/25/19 02:30 Active IV ASDIRECTED metroNIDAZOLE/Normal Saline [Flagyl 500 MG in NS 100 ML Med 04/25/19 08:00 Active ] 500 mg Premix Bag 1 bag IV Q8H oxyCODONE Med 04/25/19 02:22 Active 5 mg PO Q4H PRN Isolation [COMM] Stat Ot 04/25/19 02:25 Ordered Peripheral IV Insertion Adult [OM.PC] Stat Ot 04/24/19 22:55 Ordered SCD [Sequential Compression Device] [OM.PC] Routine Oth 04/25/19 07:34 Ordered Resuscitation Status Routine Resus Stat 04/25/19 07:34 Ordered Medication Orders Acetaminophen (Tylenol) 650 mg PO Q6H PRN PRN Reason: Pain (mild 1-3) Sodium Chloride (Normal Saline) 1,000 mls @ 100 mls/hr IV ASDIRECTED [facility] Last Admin: 04/25/19 03:25 Dose: 100 mls/hr Ciprofloxacin/Dextrose 400 mg/ (Premix) 200 mls @ 200 mls/hr IV Q12H [facility] Last Admin: 04/25/19 13:39 Dose: 200 mls/hr Metronidazole 500 mg/ Premix 100 mls @ 100 mls/hr IV Q8H [facility] Last Admin: 04/25/19 08:17 Dose: 100 mls/hr Ondansetron HCl (Zofran) 4 mg IVPUSH Q4H PRN PRN Reason: Nausea/Vomiting Oxycodone HCl (Oxycodone) 5 mg PO Q4H PRN PRN Reason: Pain (moderate 4-6)
[2019-04-25] MEDS ORDERED: Ondansetron 4 MG/2 ML SDV IVPUSH PRN (07:34)
[2019-04-25] MEDS ORDERED: metroNIDAZOLE/Normal Saline 500 MG in Premix Bag 1 BAG IV SCH (08:00)
== END 2019-04-25 16:30 | disposition home or self-care (01) ==
LOC: MW.ED 22:44 → MW.MS 04-25 00:37
PROVIDERS: ADMIT Internal Medicine; ATTEND Internal Medicine
DX: K52.9 Noninfective gastroenteritis and colitis, unspecified (principal); N39.0 Urinary tract infection, site not specified; Z88.0 Allergy status to penicillin; Z91.018 Allergy to other foods; Z91.040 Latex allergy status; Z91.048 Other nonmedicinal substance allergy status
CPT/HCPCS: 36415; 74176; 80048; 80053; 81001; 85025; 85610; 87046; 87086; 87324; 87899; 96361; 96365; 96367; 96375; 96376; 99285; G0378; J0744; J3490; J7040; 96374; 99283

== ENCOUNTER 2021-06-19 12:29 | Emergency (ER) | payer OTHER ==
--- NOTE | 2021-06-19 12:38 | EDM.PDOC ---
ED HPI GENERAL MEDICAL PROBLEM - General Chief Complaint: Chest Pain Stated Complaint: CHEST PAIN Time Seen by Provider: 06/19/21 12:31 Source of Information: Reports: Patient History Limitations: Reports: No Limitations - History of Present Illness INITIAL COMMENTS - FREE TEXT/NARRATIVE: 55-year-old female presents for chest pain. Patient does not have a history of cardiac pathology or blood clots. Patient notes that her chest pain started roughly an hour and a half prior to arrival. She describes it as a substernal nonradiating pain. It is not worse with inspiration. It waxes and wanes in intensity but is constant. No shortness of breath. No lower extremity swelling or pain. No history of similar in the past. She does note feeling anxious and notes that her sister recently. She has never had a stress test or cardiac evaluation. chest pain Pain Score (Numeric/FACES): 5 - Related Data Allergies Allergy/AdvReac Type Severity Reaction Status Date / Time amoxicillin [Amoxicillin] Allergy Hives Verified 06/19/21 12:36 cefaclor [From Ceclor] Allergy Hives Verified 06/19/21 12:36 cephalexin Allergy Hives Verified 06/19/21 12:36 kiwi Allergy Anaphylactic Verified 06/19/21 12:36 Shock latex Allergy Hives Verified 06/19/21 12:36 Penicillins Allergy Hives Verified 06/19/21 12:36 balloons Allergy Hives Uncoded 04/24/19 22:57 Home Meds: Home Meds . 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: Musculoskeletal History: Reports: None Neurological History: Reports: None Psychiatric History: Reports: None Endocrine/Metabolic History: Reports: None Hematologic History: Reports: None Immunologic History: Reports: None Oncologic (Cancer) History: Reports: None Dermatologic History: Reports: None - Infectious Disease History Infectious Disease History: Reports: None - Past Surgical History Head Surgeries/Procedures: Reports: None HEENT Surgical History: Reports: None Cardiovascular Surgical History: Reports: None Respiratory Surgical History: Reports: None GI Surgical History: Reports: Cholecystectomy Female Surgical History: Reports: Section Endocrine Surgical History: Reports: None Neurological Surgical History: Reports: None Musculoskeletal Surgical History: Reports: None Oncologic Surgical History: Reports: None Dermatological Surgical History: Reports: None Social & Family History - Family History Family Medical History: No Pertinent Family History - Caffeine Use Caffeine Use: Reports: Coffee ED ROS GENERAL - Review of Systems Review Of Systems: Comprehensive ROS is negative, except as noted in HPI. ED EXAM, GENERAL - Physical Exam Exam: See Below Exam Limited By: No Limitations General Appearance: Alert, WD/WN, No Apparent Distress Ears: Hearing Grossly Normal Throat/Mouth: Normal Voice, No Airway Compromise Head: Atraumatic, Normocephalic Respiratory/Chest: No Respiratory Distress, Lungs Clear, Normal Breath Sounds, No Accessory Muscle Use Cardiovascular: Normal Peripheral Pulses, Regular Rate, Rhythm, No Edema Extremities: Normal Inspection Neurological: Alert, Normal Cognition, Normal Gait Psychiatric: Normal Affect, Normal Mood Skin Exam: Warm, Dry, Intact, Normal Color #1 Interpretation EKG Date: 06/19/21 Time: 12:33 Rhythm: NSR Rate (Beats/Min): 84 Wayne: Normal P-Wave: Present QRS: Normal ST-T: Normal QT: Normal DC/PQ Interval: 132 Comparison: NA - No Prior EKG EKG Interpretation Comments: normal EKG Course - Vital Signs Last Recorded V/S: Last Vital Signs Temp 97.7 F 06/19/21 12:37 Pulse 82 06/19/21 16:04 Resp 15 06/19/21 16:04 BP 104/65 06/19/21 16:04 Pulse Ox 97 06/19/21 16:04 - Orders/Labs/Meds Orders: Active Orders 24 hr Category Date Time Status Saline Lock Insert [OM.PC] Stat Oth 06/19/21 12:46 Ordered Labs: Laboratory Tests 06/19/21 06/19/21 06/19/21 Range/Units 12:43 12:43 13:07 WBC 5.05 (4.0-11.0) K/uL RBC 4.37 (4.30-5.90) M/uL Hgb 14.5 (12.0-16.0) g/dL Hct 42.8 (36.0-46.0) % MCV 97.9 (80.0-98.0) fL MCH 33.2 H (27.0-32.0) pg MCHC 33.9 (31.0-37.0) g/dL RDW Std Deviation 47.5 (28.0-62.0) fl RDW Coeff of Janneth 13 (11.0-15.0) % Plt Count 208 (150-400) K/uL MPV 10.30 (7.40-12.00) fL Neut % (Auto) 54.1 (48.0-80.0) % Lymph % (Auto) 37.8 (16.0-40.0) % [place] % (Auto) 6.9 (0.0-15.0) % Eos % (Auto) 1.0 (0.0-7.0) % Baso % (Auto) 0.2 (0.0-1.5) % Neut # (Auto) 2.7 (1.4-5.7) K/uL Lymph # (Auto) 1.9 (0.6-2.4) K/uL [place] # (Auto) 0.4 (0.0-0.8) K/uL Eos # (Auto) 0.1 (0.0-0.7) K/uL Baso # (Auto) 0.0 (0.0-0.1) K/uL Nucleated RBC % 0.0 /100WBC Nucleated RBCs # 0 K/uL D-Dimer, Quantitative < 0.19 (0.0-0.50) mg/L FEU Sodium 141 (136-145) mmol/L Potassium 3.6 (3.5-5.1) mmol/L Chloride 99 (98-107) mmol/L Carbon Dioxide 28.9 (21.0-32.0) mmol/L BUN 8 (7.0-18.0) mg/dL Creatinine 0.8 (0.6-1.0) mg/dL Est Cr Clr Drug Dosing 81.10 mL/min Estimated GFR (MDRD) > 60.0 ml/min Glucose 101 (74-106) mg/dL Calcium 8.3 L (8.5-10.1) mg/dL Total Bilirubin 1.0 (0.2-1.0) mg/dL AST 17 (15-37) IU/L ALT 20 (14-63) IU/L Alkaline Phosphatase 76 (46-116) U/L Troponin I < 0.050 (0.000-0.056) ng/mL Total Protein 7.8 (6.4-8.2) g/dL Albumin 4.0 (3.4-5.0) g/dL Globulin 3.8 (2.6-4.0) g/dL Albumin/Globulin Ratio 1.1 (0.9-1.6) 06/19/21 Range/Units 15:40 WBC (4.0-11.0) K/uL RBC (4.30-5.90) M/uL Hgb (12.0-16.0) g/dL Hct (36.0-46.0) % MCV (80.0-98.0) fL MCH (27.0-32.0) pg MCHC (31.0-37.0) g/dL RDW Std Deviation (28.0-62.0) fl RDW Coeff of Janneth (11.0-15.0) % Plt Count (150-400) K/uL MPV (7.40-12.00) fL Neut % (Auto) (48.0-80.0) % Lymph % (Auto) (16.0-40.0) % Lab[place] % (Auto) (0.0-15.0) % Eos % (Auto) (0.0-7.0) % Baso % (Auto) (0.0-1.5) % Neut # (Auto) (1.4-5.7) K/uL Lymph # (Auto) (0.6-2.4) K/uL Labette # (Auto) (0.0-0.8) K/uL Eos # (Auto) (0.0-0.7) K/uL Baso # (Auto) (0.0-0.1) K/uL Nucleated RBC % /100WBC Nucleated RBCs # K/uL D-Dimer, Quantitative (0.0-0.50) mg/L FEU Sodium (136-145) mmol/L Potassium (3.5-5.1) mmol/L Chloride (98-107) mmol/L Carbon Dioxide (21.0-32.0) mmol/L BUN (7.0-18.0) mg/dL Creatinine (0.6-1.0) mg/dL Est Cr Clr Drug Dosing mL/min Estimated GFR (MDRD) ml/min Glucose (74-106) mg/dL Calcium (8.5-10.1) mg/dL Total Bilirubin (0.2-1.0) mg/dL AST (15-37) IU/L ALT (14-63) IU/L Alkaline Phosphatase (46-116) U/L Troponin I < 0.050 (0.000-0.056) ng/mL Total Protein (6.4-8.2) g/dL Albumin (3.4-5.0) g/dL Globulin (2.6-4.0) g/dL Albumin/Globulin Ratio (0.9-1.6) Meds: Medications Discontinued Medications Generic Name Dose Route Start Last Admin Trade Name Freq PRN Reason Stop Dose Admin Aspirin 324 mg 06/19/21 12:45 06/19/21 12:54 Aspirin 81 Mg Tab.Chew PO 06/19/21 12:46 324 mg ONETIME ONE Administration Lorazepam 1 mg 06/19/21 12:45 06/19/21 12:55 Lorazepam 1 Mg Tab PO 06/19/21 12:46 1 mg ONETIME ONE Administration - Re-Assessments/Exams Free Text/Narrative Re-Assessment/Exam: 06/19/21 16:24 Patient notes alleviation of symptoms shortly after receiving aspirin and Ativan. Departure - Departure Time of Disposition: 16:32 Disposition: Home, Self-Care 01 Condition: Good Clinical Impression: Chest pain Qualifiers: Chest pain type: unspecified Qualified Code(s): R07.9 - Chest pain, unspecified - Discharge Information Instructions: Nonspecific Chest Pain, Adult Referrals: PCP,None [Primary Care Provider] - Forms: ED Department Discharge Additional Instructions: Your emergency department work-up for chest pain was unremarkable. You do not have evidence of damage to your heart muscle. You should follow-up with your primary care physician or reconciliation specialist to consider a stress test for further cardiac evaluation. If you have worsening chest pain you should come back to the emergency department for reassessment. [facility] [address] [place] [phone] The following information is given to patients seen in the emergency department who are being discharged to home. This information is to outline your options for follow-up care. We provide all patients seen in our emergency department with a follow-up referral. The need for follow-up, as well as the timing and circumstances, are variable depending upon the specifics of your emergency department visit. If you don't have a primary care physician on staff, we will provide you with a referral. We always advise you to contact your personal physician following an e mergency department visit to inform them of the circumstance of the visit and for follow-up with them and/or the need for any referrals to a consulting specialist. The emergency department will also refer you to a specialist when appropriate. This referral assures that you have the opportunity for follow-up care with a specialist. All of these measure are taken in an effort to provide you with op timal care, which includes your follow-up. Under all circumstances we always encourage you to contact your private physician who remains a resource for coordinating your care. When calling for follow-up care, please make the office aware that this follow-up is from your recent emergency room visit. If for any reason you are refused follow-up, please contact the [facility] Emergency Department at and asked to speak to the emergency department charge nurse. Please follow up with your primary care physician. If you do not have a primary care physician, see below: [facility] [address] [place] [id number] [facility] [address] [place] [address] [facility] [address] [place] [id number] Sepsis Event Note (ED) - Focused Exam Vital Signs: Vital Signs Temp Pulse Resp BP Pulse Ox 06/19/21 16:04 82 15 104/65 97 06/19/21 15:40 81 96 06/19/21 15:01 87 17 136/71 98 06/19/21 14:30 83 98 06/19/21 14:00 83 100 06/19/21 13:20 79 98 06/19/21 12:37 97.7 F 99 18 136/71 100 - My Orders Last 24 Hours: My Active Orders 06/19/21 12:46 Saline Lock Insert [OM.PC] Stat - Assessment/Plan Last 24 Hours: My Active Orders 06/19/21 12:46 Saline Lock Insert [OM.PC] Stat
[2021-06-19] MEDS ORDERED: LORazepam 1 MG Tab PO ONE (12:45)
[2021-06-19] MEDS ORDERED: Aspirin 81 MG Tab.Chew PO ONE (12:45)
[2021-06-19 13:36] LABS: BLOOD UREA NITROGEN,BUN 8 mg/dL (7.0-18.0); CARBON DIOXIDE,CO2 28.9 mmol/L (21.0-32.0); CHLORIDE,CL 99 mmol/L (98-107); GLUCOSE RANDOM 101 mg/dL (74-106); POTASSIUM,K 3.6 mmol/L (3.5-5.1); SODIUM,NA 141 mmol/L (136-145)
--- NOTE | 2021-06-19 13:40 | CR ---
INDICATION: Chest pain TECHNIQUE: Portable upright AP view of the chest COMPARISON: PA chest radiograph 04/05/2018 FINDINGS: A small nodular density is noted projecting over the left mid lung. The lungs are otherwise clear. There is no appreciable pleural effusion or pneumothorax. The cardiomediastinal silhouette is normal. The visualized osseous structures are unremarkable. IMPRESSION: 1. No acute intrathoracic process. 2. Focal nodular opacity projecting over the left midlung. While this may represent summation artifact, nonemergent follow-up chest CT is recommended to exclude presence of a pulmonary nodule. Dictated by Katie Díaz MD @ 06/19/2021 1:39:32 PM (Electronically Signed)
== END 2021-06-19 16:44 | disposition home or self-care (01) ==
LOC: MW.ED 12:29
DX: R07.9 Chest pain, unspecified (principal); Z88.1 Allergy status to other antibiotic agents; Z88.0 Allergy status to penicillin; Z91.040 Latex allergy status; Z91.018 Allergy to other foods; Z91.09 Other allergy status, other than to drugs and biological substances
CPT/HCPCS: 36415; 71045; 80053; 84484; 85025; 85379; 99285; A9270

== ENCOUNTER 2021-06-23 20:06 | Emergency (ER) | payer OTHER ==
--- NOTE | 2021-06-23 20:27 | EDM.PDOC ---
<Carolina Farfan - Last Filed: 06/23/21 21:46> ED HPI GENERAL MEDICAL PROBLEM - General Chief Complaint: Gastrointestinal Problem Stated Complaint: BLOOD IN STOOL Time Seen by Provider: 06/23/21 20:18 - History of Present Illness INITIAL COMMENTS - FREE TEXT/NARRATIVE: Rectal exam: Carpenter Maintenance at bedside Jovita POZO. Hemoccult NEGATIVE. There is a maculopapular rash at the 3o clock and 9 o clock incisions on either side of the rectum without bleeding. No hemorrhoids, masses, lesions noted. Rectal tone intact. - Related Data Allergies Allergy/AdvReac Type Severity Reaction Status Date / Time amoxicillin [Amoxicillin] Allergy Hives Verified 06/23/21 20:17 cefaclor [From Ceclor] Allergy Hives Verified 06/23/21 20:17 cephalexin Allergy Hives Verified 06/23/21 20:17 kiwi Allergy Anaphylactic Verified 06/23/21 20:17 Shock latex Allergy Hives Verified 06/23/21 20:17 Penicillins Allergy Hives Verified 06/23/21 20:17 balloons Allergy Hives Uncoded 06/23/21 20:17 Home Meds: Home Meds . [No Known Home Meds] 06/23/21 [History] ED ROS GENERAL - Review of Systems Review Of Systems: Comprehensive ROS is negative, except as noted in HPI. ED EXAM, GENERAL - Physical Exam Exam: See Below (s) Departure - Departure Disposition: Home, Self-Care 01 Clinical Impression: Bloody stool, COVID - Discharge Information Instructions: COVID-19: What to Do If You Are Sick- [facility] (10/31/2020) Referrals: Fidelina Sheikh DO [Primary Care Provider] - Forms: ED Department Discharge Additional Instructions: Your labs and imaging were unremarkable. There is no evidence of mesenteric artery occlusion or colitis. Sometimes with heavy diarrhea there can be bright red blood in the stool, however, given your history it was improving that we did an extensive work-up to rule out anything else going on. Given your positive COVID-19 diagnosis I think is a good idea to get the Regeneron monoclonal antibody therapy. I did set you up for an infusion with her infusion clinic so they should be calling you tomorrow to help establish that appointment. It is done here in the hospital. The following information is given to patients seen in the emergency department who are being discharged to home. This information is to outline your options for follow-up care. We provide all patients seen in our emergency department with a follow-up referral. The need for follow-up, as well as the timing and circumstances, are variable depending upon the specifics of your emergency department visit. If you don't have a primary care physician on staff, we will provide you with a referral. We always advise you to contact your personal physician following an emergency department visit to inform them of the circumstance of the visit and for follow-up with them and/or the need for any referrals to a consulting specialist. The emergency department will also refer you to a specialist when appropriate. This referral assures that you have the opportunity for follow-up care with a specialist. All of these measure are taken in an effort to provide you with optimal care, which includes your follow-up. Under all circumstances we always encourage you to contact your private physician who remains a resource for coordinating your care. When calling for follow-up care, please make the office aware that this follow-up is from your recent emergency room visit. If for any reason you are refused follow-up, please contact the [facility] Emergency Department at and asked to speak to the emergency department charge nurse. Please follow up with your primary care physician. If you do not have a primary care physician, see below: [facility] [address] [place] [id number] [phone] [facility] [address] [place] [id number] <Sukumar Lloyd - Last Filed: 06/24/21 00:26> ED HPI GENERAL MEDICAL PROBLEM - General Source of Information: Reports: Patient History Limitations: Reports: No Limitations - History of Present Illness INITIAL COMMENTS - FREE TEXT/NARRATIVE: 55-year-old female past medical history ischemic colitis presents for bloody stool. Patient notes that she tested positive for COVID-19 this morning. She notes mild chest discomfort, cough, mild shortness of breath. She denies any abdominal pain but notes that she had about 5 episodes of bloody diarrhea today. She notes that she had a history of ischemic colitis in the past that required hospitalization. She does see a specialist at [facility] and states that she was given a particular protocol that is supposed to be done when she is having episodes of ischemic colitis, however, she does not know this protocol. 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: Musculoskeletal History: Reports: None Neurological History: Reports: None Psychiatric History: Reports: None Endocrine/Metabolic History: Reports: None Hematologic History: Reports: None Immunologic History: Reports: None Oncologic (Cancer) History: Reports: None Dermatologic History: Reports: None - Infectious Disease History Infectious Disease History: Reports: None - Past Surgical History Head Surgeries/Procedures: Reports: None HEENT Surgical History: Reports: None Cardiovascular Surgical History: Reports: None Respiratory Surgical History: Reports: None GI Surgical History: Reports: Cholecystectomy Other GI Surgeries/Procedures: ischemic colitis Female Surgical History: Reports: Section Endocrine Surgical History: Reports: None Neurological Surgical History: Reports: None Musculoskeletal Surgical History: Reports: None Oncologic Surgical History: Reports: None Dermatological Surgical History: Reports: None Social & Family History - Family History Family Medical History: No Pertinent Family History - Tobacco Use Tobacco Use Status *Q: Never Tobacco User - Caffeine Use Caffeine Use: Reports: None - Recreational Drug Use Recreational Drug Use: No ED ROS GENERAL - Review of Systems Review Of Systems: Comprehensive ROS is negative, except as noted in HPI. ED EXAM, GENERAL - Physical Exam Exam: See Below Exam Limited By: No Limitations General Appearance: Alert, WD/WN, No Apparent Distress Ears: Hearing Grossly Normal Throat/Mouth: Normal Voice, No Airway Compromise Head: Atraumatic, Normocephalic Respiratory/Chest: No Respiratory Distress, Lungs Clear, Normal Breath Sounds, No Accessory Muscle Use Cardiovascular: Normal Peripheral Pulses, Regular Rate, Rhythm GI/Abdominal: Soft, Non-Tender Extremities: Normal Inspection Neurological: Alert, Normal Cognition, Normal Gait Psychiatric: Normal Affect, Normal Mood Skin Exam: Warm, Dry, Intact, Normal Color Course - Vital Signs Last Recorded V/S: Last Vital Signs Temp 96.2 F L 06/23/21 20:17 Pulse 86 06/23/21 20:17 Resp 16 06/23/21 20:17 BP 121/79 06/23/21 20:17 Pulse Ox 100 06/23/21 20:17 - Orders/Labs/Meds Orders: Active Orders 24 hr Category Date Time Status Ang Pelvis [CT] Stat Exams 06/23/21 20:36 Taken C DIFFICILE AG/TOXIN W/REFLEX [RM] Stat Lab 06/23/21 21:45 Ordered OVA & PARASITES BY IMMUNOASSAY [MREF] Stat Lab 06/23/21 21:45 Ordered STOOL CULTURE/SHIGA TOXIN [MREF] Stat Lab 06/23/21 21:45 Ordered Sodium Chloride 0.9% [Normal Saline] 1,000 ml Med 06/24/21 00:09 Active IV .Bolus Saline Lock Insert [OM.PC] Stat Oth 06/23/21 20:34 Ordered Medication Orders Sodium Chloride (Normal Saline) 1,000 mls @ 999 mls/hr IV .Bolus ONE Stop: 06/24/21 01:09 Last Admin: 06/24/21 00:11 Dose: 999 mls/hr Documented by: IVELISSE Labs: Laboratory Tests 06/23/21 06/23/21 06/23/21 Range/Units 20:40 20:40 20:40 WBC 5.14 (4.0-11.0) K/uL RBC 4.00 L (4.30-5.90) M/uL Hgb 13.6 (12.0-16.0) g/dL Hct 38.6 (36.0-46.0) % MCV 96.5 (80.0-98.0) fL MCH 34.0 H (27.0-32.0) pg MCHC 35.2 (31.0-37.0) g/dL RDW Std Deviation 45.5 (28.0-62.0) fl RDW Coeff of Janneth 13 (11.0-15.0) % Plt Count 147 L (150-400) K/uL MPV 10.00 (7.40-12.00) fL Neut % (Auto) 69.9 (48.0-80.0) % Lymph % (Auto) 20.0 (16.0-40.0) % [place] % (Auto) 8.9 (0.0-15.0) % Eos % (Auto) 1.0 (0.0-7.0) % Baso % (Auto) 0.2 (0.0-1.5) % Neut # (Auto) 3.6 (1.4-5.7) K/uL Lymph # (Auto) 1.0 (0.6-2.4) K/uL Hardee # (Auto) 0.5 (0.0-0.8) K/uL Eos # (Auto) 0.1 (0.0-0.7) K/uL Baso # (Auto) 0.0 (0.0-0.1) K/uL Nucleated RBC % 0.0 /100WBC Nucleated RBCs # 0 K/uL INR 1.03 APTT 24.5 (18.6-31.3) SEC Sodium 137 (136-145) mmol/L Potassium 3.8 (3.5-5.1) mmol/L Chloride 100 (98-107) mmol/L Carbon Dioxide 26.8 (21.0-32.0) mmol/L BUN 6 L (7.0-18.0) mg/dL Creatinine 0.7 (0.6-1.0) mg/dL Est Cr Clr Drug Dosing 90.13 mL/min Estimated GFR (MDRD) > 60.0 ml/min Glucose 100 (74-106) mg/dL Lactic Acid (0.4-2.0) mmol/L Calcium 8.3 L (8.5-10.1) mg/dL Magnesium 1.9 (1.8-2.4) mg/dL Total Bilirubin 0.6 (0.2-1.0) mg/dL AST 21 (15-37) IU/L ALT 15 (14-63) IU/L Alkaline Phosphatase 71 (46-116) U/L Troponin I < 0.050 (0.000-0.056) ng/mL Total Protein 7.5 (6.4-8.2) g/dL Albumin 3.7 (3.4-5.0) g/dL Globulin 3.8 (2.6-4.0) g/dL Albumin/Globulin Ratio 1.0 (0.9-1.6) Ethyl Alcohol mg/dL 06/23/21 06/23/21 Range/Units 20:40 20:40 WBC (4.0-11.0) K/uL RBC (4.30-5.90) M/uL Hgb (12.0-16.0) g/dL Hct (36.0-46.0) % MCV (80.0-98.0) fL MCH (27.0-32.0) pg MCHC (31.0-37.0) g/dL RDW Std Deviation (28.0-62.0) fl RDW Coeff of Janneth (11.0-15.0) % Plt Count (150-400) K/uL MPV (7.40-12.00) fL Neut % (Auto) (48.0-80.0) % Lymph % (Auto) (16.0-40.0) % Hardee % (Auto) (0.0-15.0) % Eos % (Auto) (0.0-7.0) % Baso % (Auto) (0.0-1.5) % Neut # (Auto) (1.4-5.7) K/uL Lymph # (Auto) (0.6-2.4) K/uL Hardee # (Auto) (0.0-0.8) K/uL Eos # (Auto) (0.0-0.7) K/uL Baso # (Auto) (0.0-0.1) K/uL Nucleated RBC % /100WBC Nucleated RBCs # K/uL INR APTT (18.6-31.3) SEC Sodium (136-145) mmol/L Potassium (3.5-5.1) mmol/L Chloride (98-107) mmol/L Carbon Dioxide (21.0-32.0) mmol/L BUN (7.0-18.0) mg/dL Creatinine (0.6-1.0) mg/dL Est Cr Clr Drug Dosing mL/min Estimated GFR (MDRD) ml/min Glucose (74-106) mg/dL Lactic Acid 1.4 (0.4-2.0) mmol/L Calcium (8.5-10.1) mg/dL Magnesium (1.8-2.4) mg/dL Total Bilirubin (0.2-1.0) mg/dL AST (15-37) IU/L ALT (14-63) IU/L Alkaline Phosphatase (46-116) U/L Troponin I (0.000-0.056) ng/mL Total Protein (6.4-8.2) g/dL Albumin (3.4-5.0) g/dL Globulin (2.6-4.0) g/dL Albumin/Globulin Ratio (0.9-1.6) Ethyl Alcohol 18 mg/dL Meds: Medications Generic Name Dose Route Start Last Admin Trade Name Freq PRN Reason Stop Dose Admin Sodium Chloride 1,000 mls @ 999 mls/hr 06/24/21 00:09 06/24/21 00:11 Normal Saline IV 06/24/21 01:09 999 mls/hr .Bolus ONE Administration Discontinued Medications Generic Name Dose Route Start Last Admin Trade Name Freq PRN Reason Stop Dose Admin Diphenhydramine HCl 50 mg 06/23/21 21:10 06/23/21 21:16 Diphenhydramine 50 Mg/Ml Sdv IVPUSH 06/23/21 21:11 50 mg ONETIME ONE Administration Sodium Chloride 1,000 mls @ 999 mls/hr 06/23/21 20:34 06/23/21 20:54 Normal Saline IV 06/23/21 21:34 999 mls/hr .Bolus ONE Administration Iopamidol 100 ml 06/23/21 23:06 06/23/21 23:07 Iopamidol 755 Mg/Ml 500 Ml Multipack Bottle IVPUSH 06/23/21 23:07 100 ml ONETIME ONE Administration Methylprednisolone Sodium Succinate 125 mg 06/23/21 21:09 06/23/21 21:16 Methylprednisolone Sodium Succinate 125 Mg/2 Ml Sdv IVPUSH 06/23/21 21:10 125 mg ONETIME ONE Administration - Re-Assessments/Exams Free Text/Narrative Re-Assessment/Exam: 06/24/21 00:[address] imaging were performed. CTA imaging and labs are all normal. Guaiac is negative. Normal rectal exam, see PA note. I did try to reach out to patient's PMD Dr. Sheikh however she was unavailable. Departure - Departure Time of Disposition: 00:25 Condition: Good Sepsis Event Note (ED) - Evaluation Sepsis Screening Result: No Definite Risk - Focused Exam Vital Signs: Vital Signs Temp Pulse Resp BP Pulse Ox 06/23/21 20:17 96.2 F L 86 16 121/79 100 - My Orders Last 24 Hours: My Active Orders 06/23/21 20:34 Saline Lock Insert [OM.PC] Stat 06/23/21 20:36 Ang Pelvis [CT] Stat 06/24/21 00:09 Sodium Chloride 0.9% [Normal Saline] 1,000 ml IV .Bolus - Assessment/Plan Last 24 Hours: My Active Orders 06/23/21 20:34 Saline Lock Insert [OM.PC] Stat 06/23/21 20:36 Ang Pelvis [CT] Stat 06/24/21 00:09 Sodium Chloride 0.9% [Normal Saline] 1,000 ml IV .Bolus
[2021-06-23] MEDS ORDERED: Sodium Chloride 0.9% 1,000 ML IV ONE (20:34)
[2021-06-23] MEDS ORDERED: methylPREDNISolone Sodium Succinate 125 MG/2 ML SDV IVPUSH ONE (21:09)
[2021-06-23] MEDS ORDERED: diphenhydrAMINE 50 MG/ML SDV IVPUSH ONE (21:10)
[2021-06-23 21:19] LABS: BLOOD UREA NITROGEN,BUN 6 mg/dL (7.0-18.0); CARBON DIOXIDE,CO2 26.8 mmol/L (21.0-32.0); CHLORIDE,CL 100 mmol/L (98-107); GLUCOSE RANDOM 100 mg/dL (74-106); POTASSIUM,K 3.8 mmol/L (3.5-5.1); SODIUM,NA 137 mmol/L (136-145)
--- NOTE | 2021-06-23 21:33 | CR ---
INDICATION: COVID pneumonia. TECHNIQUE: Chest 1 view. COMPARISON: 06/19/2021. FINDINGS: Cardiovascular and mediastinum: Heart size and vasculature are normal in caliber and appearance. Mediastinum is within normal limits. Lungs and pleural space: No acute airspace disease. No sign of pleural effusion. No pneumothorax. Bones and soft tissues: No significant findings. The prior report questioned a nodular density overlying the left midlung. This measures approximately 9 millimeters on the current examination, and overlies the left posterior 7th rib. This may be further assessed non emergently with chest CT. Differential diagnosis includes a vessel seen end on or subcentimeter pulmonary nodule. IMPRESSION: No acute airspace disease. Dictated by Brian Dai MD @ 06/23/2021 9:32:02 PM (Electronically Signed)
[2021-06-23] MEDS ORDERED: Iopamidol 755 MG/ML 500 ML Multipack Bottle IVPUSH ONE (23:06)
[2021-06-24] MEDS ORDERED: Sodium Chloride 0.9% 1,000 ML IV ONE (00:09)
--- NOTE | 2021-06-24 00:13 | CT ---
INDICATION: Bleeding per rectum. Evaluate for ischemic colitis. CT ABDOMEN AND PELVIS WITH CONTRAST TECHNIQUE: Multidetector CT imaging was performed through the abdomen and pelvis with 1.0 millimeter axial collimation following intravenous contrast administration using 100 mL Isovue 370. Coronal and sagittal reconstructions were generated. COMPARISON: 04/24/[address] abdomen and pelvis. FINDINGS: Lower chest: Lung bases are clear. Liver: Within normal limits. Gallbladder and bile ducts: Status post cholecystectomy, as before. No biliary dilation identified. Pancreas: Unremarkable. Spleen: Normal. Adrenals: No nodules or masses. Kidneys, ureters, and urinary bladder: No renal masses or hydronephrosis. No bladder mass or definite wall thickening. Gastrointestinal tract: Normal caliber small bowel without apparent obstruction or wall thickening. The appendix is normal. Limited evaluation of the colon due to nondistention with no definite colon wall thickening or pericolonic fat stranding to suggest colitis. Vascular structures: Normal caliber abdominal aorta with trace atherosclerotic calcification. Wide patency of the celiac axis, proximal SMA, proximal SANGEETA, renal arteries, and iliac arteries. Peritoneum: No free air, abscess, or significant free fluid. Lymph nodes: No pathologically enlarged nodes identified. Reproductive organs: No pelvic masses. Bones: Degenerative disc disease at L5-S1. IMPRESSION: 1. No acute abnormality identified. No evidence of colitis or mesenteric artery occlusion. No cause for the patient`s symptoms is demonstrated. 2. Nonacute findings as detailed above. RICHARD OSEI MD [facility] Dictated by Kamaljit Osei MD @ 06/24/2021 12:12:06 AM Please note that all CT scans at this facility use dose modulation, iterative reconstruction, and/or weight-based dosing when appropriate to reduce radiation dose to as low as reasonably achievable. Dictated by: Kamaljit Osei MD @ 06/24/2021 00:12:47 (Electronically Signed)
--- NOTE | 2021-06-24 13:24 | CT ---
EXAM DATE: 06/23/21 PATIENT'S AGE: 55 Patient: DIPAK FONSECA [facility] . Site : [id number] Study: CT-Abdomen/Pelvis Angio -06/23/2021 11:03:41 PM Ordering Physician: Prema Patino Final Report: INDICATION: Bleeding per rectum. Evaluate for ischemic colitis. CT ABDOMEN AND PELVIS WITH CONTRAST TECHNIQUE: Multidetector CT imaging was performed through the abdomen and pelvis with 1.0 millimeter axial collimation following intravenous contrast administration using 100 mL Isovue 370. Coronal and sagittal reconstructions were generated. COMPARISON: 04/24/[address] abdomen and pelvis. FINDINGS: Lower chest: Lung bases are clear. Liver: Within normal limits. Gallbladder and bile ducts: Status post cholecystectomy, as before. No biliary dilation identified. Pancreas: Unremarkable. Spleen: Normal. Adrenals: No nodules or masses. Kidneys, ureters, and urinary bladder: No renal masses or hydronephrosis. No bladder mass or definite wall thickening. Gastrointestinal tract: Normal caliber small bowel without apparent obstruction or wall thickening. The appendix is normal. Limited evaluation of the colon due to nondistention with no definite colon wall thickening or pericolonic fat stranding to suggest colitis. Vascular structures: Normal caliber abdominal aorta with trace atherosclerotic calcification. Wide patency of the celiac axis, proximal SMA, proximal SANGEETA, renal arteries, and iliac arteries. Peritoneum: No free air, abscess, or significant free fluid. Lymph nodes: No pathologically enlarged nodes identified. Reproductive organs: No pelvic masses. Bones: Degenerative disc disease at L5-S1. IMPRESSION: 1. No acute abnormality identified. No evidence of colitis or mesenteric artery occlusion. No cause for the patient`s symptoms is demonstrated. 2. Nonacute findings as detailed above. RICHARD OSEI MD [facility] Dictated by Kamaljit Osei MD @ 06/24/2021 12:12:06 AM Please note that all CT scans at this facility use dose modulation, iterative reconstruction, and/or weight-based dosing when appropriate to reduce radiation dose to as low as reasonably achievable. Dictated by: Kamaljit Osei MD @ 06/24/2021 00:12:47 Signed by: Kamaljit Osei MD @06/24/2021 12:12:47 AM (Electronic Signature) Report Signed by Proxy. [facility]
== END 2021-06-24 00:41 | disposition home or self-care (01) ==
LOC: MW.ED 20:06
DX: U07.1 COVID-19 (principal); K92.1 Melena; Z91.040 Latex allergy status; Z88.0 Allergy status to penicillin; Z88.1 Allergy status to other antibiotic agents; Z91.048 Other nonmedicinal substance allergy status; Z91.018 Allergy to other foods
CPT/HCPCS: 36415; 71045; 72191; 74175; 80053; 80307; 83605; 83735; 84484; 85025; 85610; 85730; 87635; 93005; 96374; 96375; 99284; J1200; J2930; J7030; Q9967; U0002

== ENCOUNTER 2021-11-30 13:08 | Emergency (ER) | payer OTHER ==
[2021-11-30] MEDS ORDERED: Benzocaine 20% Topical Spray UD MUCMEM ONE (14:46)
[2021-11-30] MEDS ORDERED: Lidocaine 2% Viscous Solution 15 ML UD PO ONE (14:46)
== END 2021-11-30 15:34 | disposition home or self-care (01) ==
LOC: MW.ED 13:08
DX: K03.81 Cracked tooth (principal); H69.81 Other specified disorders of Eustachian tube, right ear; Z88.0 Allergy status to penicillin; Z91.040 Latex allergy status; Z91.018 Allergy to other foods; Z88.1 Allergy status to other antibiotic agents
CPT/HCPCS: 99282; A9270

== ENCOUNTER 2023-06-25 13:26 | Emergency (ER) | payer SELFPAY ==
[2023-06-25] MEDS ORDERED: methylPREDNISolone Sodium Succinate 125 MG/2 ML SDV IVPUSH STA (13:32)
[2023-06-25] MEDS ORDERED: Sodium Chloride 0.9% 1,000 ML IV STA (13:32)
[2023-06-25] MEDS ORDERED: diphenhydrAMINE 50 MG/ML SDV IVPUSH STA (13:32)
[2023-06-25] MEDS ORDERED: Famotidine 20 MG/2 ML SDV IVPUSH STA (13:39)
== END 2023-06-25 15:19 | disposition left against medical advice (07) ==
LOC: MW.ED 13:26
DX: T78.40XA Allergy, unspecified, initial encounter (principal); Z98.890 Other specified postprocedural states; Z88.0 Allergy status to penicillin; Z88.1 Allergy status to other antibiotic agents; Z91.018 Allergy to other foods; Z91.040 Latex allergy status; Z88.2 Allergy status to sulfonamides; Z91.048 Other nonmedicinal substance allergy status
CPT/HCPCS: 93005; 96361; 96374; 96375; 99284; J1200; J2930; J3490; J7030; 93010

== ENCOUNTER 2024-04-08 15:16 | Emergency (ER) | payer BC, OTHER ==
[2024-04-08 16:19] LABS: EOSINOPHILS ABSOLUTE AUTO 0.03 K/uL (0.00-0.45); EOSINOPHILS PERCENT AUTO 1.1 % (0.0-6.0); HEMATOCRIT 40.4 % (37.0-47.0); HEMOGLOBIN 13.9 g/dL (12.0-16.0); IMMATURE GRAN ABSOLUTE AUTO 0.01 K/uL (0.00-0.05); IMMATURE GRAN PERCENT AUTO 0.4 % (0.0-0.4); LYMPHOCYTES PERCENT AUTO 41.7 % (24.0-44.0); MEAN CORPUSCULAR HEMOGLOBIN 32.9 pg (28.0-32.0); MEAN CORPUSCULAR HGB CONC 34.4 g/dL (32.0-36.0); MEAN CORPUSCULAR VOLUME 95.5 fL (83.0-99.0); MEAN PLATELET VOLUME 9.7 fL (9.4-12.3); MONOCYTES ABSOLUTE AUTO 0.17 K/uL (0.00-0.80); MONOCYTES PERCENT AUTO 6.4 % (0.0-8.0); NEUTROPHILS ABSOLUTE AUTO 1.33 K/uL (1.80-7.70); NEUTROPHILS PERCENT AUTO 50.4 % (41.0-71.0); PLATELET COUNT,PLT 121 K/uL (150-400); RED BLOOD CELL COUNT 4.23 M/uL (4.10-5.30); WHITE BLOOD CELL COUNT,WBC 2.64 K/uL (3.9-11.3)
[2024-04-08 16:47] LABS: A/G RATIO 1.2 (0.9-1.6); ALBUMIN 3.9 g/dL (3.4-5.0); BILIRUBIN TOTAL 0.4 mg/dL (0.2-1.0); CALCIUM 8.8 mg/dL (8.5-10.1); CARBON DIOXIDE,CO2 29.7 mmol/L (21.0-32.0); CREATININE 0.9 mg/dL (0.6-1.0); EST CRCL DRUG DOSING (CG) 64.2 mL/min; POTASSIUM,K 4.2 mmol/L (3.5-5.1); PROTEIN TOTAL,TP 7.2 g/dL (6.4-8.2)
[2024-04-08 16:58] LABS: MAGNESIUM 1.7 mg/dL (1.8-2.4); TSH ULTRASENSITIVE 3.06 uIU/mL (0.36-3.74)
[2024-04-08] MEDS: Alum Hydro/Mag Hydro/Simeth XS 15 ML, Metoclopramide 5 MG, Lidocaine 2% 5 ML PO ONE (16:58)
[2024-04-08] MEDS: Sodium Chloride 0.9% 1,000 ML IV ONE (17:26)
[2024-04-08] MEDS: LORazepam 0.5 MG Tab PO ONE (18:29)
[2024-04-08] MEDS: Metoclopramide 5 MG Tab PO ONE (18:32)
== END 2024-04-08 18:55 | disposition home or self-care (01) ==
LOC: MW.ED 15:16
DX: U07.1 COVID-19 (principal); Z91.040 Latex allergy status; Z88.0 Allergy status to penicillin; Z88.2 Allergy status to sulfonamides; Z88.8 Allergy status to other drugs, medicaments and biological substances; Z91.018 Allergy to other foods; Z91.048 Other nonmedicinal substance allergy status; Z75.8 Other problems related to medical facilities and other health care
CPT/HCPCS: 36415; 71045; 80053; 83735; 84443; 85025; 93005; 96360; 99284; A9270; J7030; 93010